=== PATIENT | female | born 1965 ===

== ENCOUNTER 2017-12-27 07:41 | Inpatient (IN) | payer OTHER ==
[~2017-12-27] VITALS: Ht 170.2 cm; Wt 98.4 kg
[2017-12-27] MEDS ORDERED: COZAAR100 MG PO (08:07)
[2017-12-27] MEDS ORDERED: LIPITOR40 MG PO (08:07)
[2017-12-27] MEDS ORDERED: FORTAMET1000 MG PO (08:07)
[2017-12-27] MEDS ORDERED: SYNTH PO (08:08)
[2017-12-27] MEDS ORDERED: [UNRECOGNIZED DRUG - OTHER] PO (08:09)
[2018-01-03] MEDS ORDERED: GLYXAMBI 25 MG1 EACH PO (11:55)
[2018-01-03] MEDS ORDERED: LEVOTHYROXINE25 MCG PO (11:56)
== END 2018-01-05 20:01 | DRG 470 ==
LOC: SURG 01-03 07:34 → O/R 01-03 07:34 → SURG 01-03 10:15
PROVIDERS: Orthopaedic Surgery
PROC: 0SR90JZ Replacement of Right Hip Joint with Synthetic Substitute, Open Approach (ICD-10-PCS; principal; 2018-01-03 13:00)
DX: M16.11 Unilateral primary osteoarthritis, right hip (principal); D62 Acute posthemorrhagic anemia; M85.661 Other cyst of bone, right lower leg; E03.8 Other specified hypothyroidism; E11.9 Type 2 diabetes mellitus without complications; Z79.4 Long term (current) use of insulin